=== PATIENT | female | born 1955 | race Caucasian/White ===

== ENCOUNTER → 2017-08-19 | Outpatient (CLI) | payer OTHER ==
[~2017-08-19] VITALS: Ht 167.6 cm; Wt 74.2 kg
[2017-08-19] VITALS (8 sets, daily range): BP systolic 136–177; BP diastolic 75–97; PULSE 52–66
[~2017-08-19] MED LIST: ATENOLOL50 MG PO; CALCIUM CARBON650 M2 PO; CALTRATE-600 W600 MG PO; HCTZ 25MG TAB25 MG PO; HCTZ 25MG25 MG PO; MICARDIS40 MG PO; MULTI VITAMINS1 TAB PO; MVI PO; OMEGA-3 FISH1000 MG PO; PENTASA PO; PENTASA500 MG PO; PRAVACHOL 40MG40 MG PO; REMICADE V100 MG/VIA IV; TENORMIN 5050 MG/TAB PO; TENORMIN100 MG PO; ZANTAC 7575 MG PO
[2017-08-19 10:25] LABS: INR 0.9 (0.8-3.0); PROTHROMBIN TIME 10.2 SECONDS (9.7-12.8)
== END ==
LOC: COL.RAD 09:58
PROVIDERS: Physician Assistant
DX: K76.0 Fatty (change of) liver, not elsewhere classified (principal); K50.90 Crohn's disease, unspecified, without complications

== ENCOUNTER 2021-11-07 06:01 | Day surgery (SDC) | payer OTHER ==
[~2021-11-07] VITALS: Ht 167.6 cm; Wt 71.9 kg
[2021-11-07 06:18] VITALS: BP 135/89; PULSE 77; TEMP 96.6
[2021-11-07] MEDS ORDERED: COZAAR100 MG PO (06:23)
[2021-11-07] MEDS ORDERED: HYGROTON 2525 MG/TAB PO (06:23)
[2021-11-07] MEDS ORDERED: FLONASE NASAL S16 GM NS (06:24)
[2021-11-07] MEDS ORDERED: ZYRTEC 10MG10 MG PO (06:25)
[2021-11-07] MEDS ORDERED: EPA FISH OIL1 SGL PO (06:26)
[2021-11-07] MEDS ORDERED: MULTI VITAMINS1 TAB PO (06:27)
[2021-11-07 07:30] VITALS: BP 118/70; PULSE 69; TEMP 96.7
--- NOTE | 2021-11-07 07:44 | NUR ---
0730 - PT arrives on cart drowsy but oriented; ambulated from cart to chair 2:1 w/ steady gait. Monitors applied and VSS. PT denies pain and nasuea. Verbal room report obtained. Warm blankets applied. PT oriented to room and call chambers, within reach. PT requested stay in waiting room until discharge. Will monitor per interals. PT provided snack and drink. 0745 - VSS. PT has finished snack and drink. Expressed desire to be discharged. Call chambers remains within reach. PT denies pain and nausea.
[2021-11-07 07:45] VITALS: BP 118/67; PULSE 71
[2021-11-07 08:00] VITALS: BP 119/72; PULSE 62
--- NOTE | 2021-11-07 08:00 | NUR ---
0800 - VSS. IV discontinued. Catheter tip intact. Pressure bandage applied. NO redness or swelling noted. DC instructions and educational material reviewed with the PT who verbalized understanding and signed the realted paperwork. PT refused RN assistance changing into personal belongings; call chambers remains within reach. Awaiting DR to speak w/ PT.
--- NOTE | 2021-11-07 08:11 | NUR ---
0805 - PT dismissed from endo via wheelchair to the PT entrence by Nivia FALL. PT transferred into the care of her , who is driving private car. PT has DC packet and personal belongings. Questions answered to PT satisfaction. has spoken w/ PT
== END 2021-11-07 08:10 | disposition home or self-care (01) ==
LOC: SDCO 06:01
DX: Z12.11 Encounter for screening for malignant neoplasm of colon (principal); K50.80 Crohn's disease of both small and large intestine without complications; Z80.0 Family history of malignant neoplasm of digestive organs; K57.30 Diverticulosis of large intestine without perforation or abscess without bleeding
CPT/HCPCS: J2704; J3010; J7120